=== PATIENT | female | born 1935 | race Caucasian/White ===

== ENCOUNTER → 2017-07-04 | Day surgery (SDC) | payer MEDICARE ==
[~2017-07-04] MED LIST: ASPI81TA50 PO; BRIM5DRO3 EACHEYE; DORZ10DR3 EACHEYE; GLIP10TA13 PO; GLUC100018 PO; HYDROmorphone 2 MG/ML VIAL IV PRN; IV RINGERS,LACTATED 1000ML 1,000 ML IV SCH; LIDOCAINE 1% PF 2 ML VIAL. ID PRN; LIDOCAINE 2% PF Vial for OR 5 ML VIAL. ONE; MELO7.5T29 PO; METF-620 PO; MORPHINE SULFATE 2 MG/ML DISP.SYRIN. IV PRN; MULT1TAB52 PO; ONDANSETRON PF 4 MG/2 ML VIAL. IV PRN; PARO20TA3 PO; PROCHLORPERAZINE 10 MG/2 ML VIAL. IV PRN; PROPOFOL 40 ML IV ONE; SIMV40TA3 PO; SITA1TAB11 PO; VALS1TAB14 PO; fentaNYL PF VIAL 100 MCG/2 ML VIAL IV PRN
[2017-07-04 09:40] VITALS: BP 170/74
--- NOTE | 2017-07-04 17:55 | CONS ---
DATE OF CONSULTATION: 07/04/2017 REASON FOR CONSULTATION: History of colon cancer. HISTORY OF PRESENT ILLNESS: An 82-year-old female with past medical history significant for colon cancer, seen for constipation and bleeding, describes blood drops in the toilet. With the continued issues, she requests additional evaluation. PAST MEDICAL HISTORY: History of colon cancer, history of diabetes, hypertension, hyperlipidemia. ALLERGIES: None. MEDICATIONS: Include aspirin, Alphagan eye drops, glipizide, glucosamine, Meloxicam, paroxetine, simvastatin, metformin/Janumet, valsartan/hydrochlorothiazide. FAMILY AND SOCIAL HISTORY: She is retired. Does not drink or smoke. REVIEW OF SYSTEMS: Per records. PHYSICAL EXAMINATION: GENERAL: Reveals a well-nourished, well-developed female, who is alert and cooperative, in no acute distress. VITAL SIGNS: Temperature 97.6, pulse 91, respiratory rate 18. HEENT: Normocephalic and atraumatic. Pupils and extraocular movements are not tested. Sclerae anicteric. NECK: Supple. LUNGS: Clear. CARDIOVASCULAR: Reveals an S1, S2 without S3, S4 or appreciable murmur. ABDOMEN: Soft abdomen, normal bowel sounds, without appreciable splenomegaly. EXTREMITIES: Reveals no cyanosis, clubbing or edema. IMPRESSION: Rectal bleed, history of colon cancer, constipation. Colonoscopy is recommended to further assess. Risks and benefits have been discussed. The patient is willing to proceed at this time. MOISE GALINDO MD DR: ANDREA/melissa JOB#: [id number] / [id number]
== END | disposition home or self-care (01) ==
LOC: ENDOS 07:27
PROVIDERS: ATTEND Internal Medicine Gastroenterology
DX: K64.0 First degree hemorrhoids (principal); E07.9 Disorder of thyroid, unspecified; E11.39 Type 2 diabetes mellitus with other diabetic ophthalmic complication; H40.9 Unspecified glaucoma; E78.00 Pure hypercholesterolemia, unspecified; I10 Essential (primary) hypertension; F41.9 Anxiety disorder, unspecified; Z87.39 Personal history of other diseases of the musculoskeletal system and connective tissue
CPT/HCPCS: 45378; 82962; J2704; J2001

== ENCOUNTER → 2018-01-23 | Outpatient (CLI) | payer MEDICARE | END | disposition home or self-care (01) | LOC: ECHO 13:53 | DX: I34.0 Nonrheumatic mitral (valve) insufficiency (principal); I10 Essential (primary) hypertension; E11.39 Type 2 diabetes mellitus with other diabetic ophthalmic complication; E78.00 Pure hypercholesterolemia, unspecified | CPT/HCPCS: 93306 ==

== ENCOUNTER → 2020-07-06 | Outpatient (CLI) | payer MEDICARE ==
[2018-02-01 11:15] VITALS: BP 113/53
[~2020-07-06] MED LIST changes: +ASPI-630 PO; +BARIUM SULFATE 40% (APPLE) 148 GM PWD. PO ONE; -DORZ10DR3 EACHEYE; +DORZ10DR6 EACHEYE; -HYDROmorphone 2 MG/ML VIAL IV PRN; -IV RINGERS,LACTATED 1000ML 1,000 ML IV SCH; +LATA2.5D3 EACHEYE; -LIDOCAINE 1% PF 2 ML VIAL. ID PRN; -LIDOCAINE 2% PF Vial for OR 5 ML VIAL. ONE; +MELO15TA23 PO; -METF-620 PO; +METF10007 PO; -MORPHINE SULFATE 2 MG/ML DISP.SYRIN. IV PRN; +MULT-245 PO; +MULT-445 PO; -MULT1TAB52 PO; -ONDANSETRON PF 4 MG/2 ML VIAL. IV PRN; +PARO10TA3 PO; -PROCHLORPERAZINE 10 MG/2 ML VIAL. IV PRN; -PROPOFOL 40 ML IV ONE; +SIMV40TA18 PO; -SIMV40TA3 PO; -fentaNYL PF VIAL 100 MCG/2 ML VIAL IV PRN
--- NOTE | 2020-07-06 16:34 | RAD ---
PROCEDURE: VIDEO SWALLOW STUDY STUDY DATE: 07/06/2020 CLINICAL INDICATION / HISTORY: Reason: DYSPHAGIA / Spl. Instructions: BARIUM ORDERED / History: . TECHNIQUE: Real-time fluoroscopic imaging examination was performed in conjunction with speech therapy. The patient was administered barium labeled thin liquids, pudding, and solid consistency compounds. FLUOROSCOPY TIME: 3.0 minutes. Number of Images: 9 COMPARISON: None FINDINGS: The patient exhibited normal oral control. There was some delay in swallow initiation, likely related to intermittent inattention. Oral residue was observed post swallow in the valleculae. No definite aspiration was observed. The patient tolerated solid barium label compounds. Transient penetration was observed with mixed consistency solids as well as at the first trial of thin liquids by teaspoon. IMPRESSION: Mild dysphasia of the pharyngeal phase with transient penetration observed with thin liquids and mixed solid and thin liquid consistency foods.. No evidence of aspiration. Please refer to speech pathology notes for complete details and recommendations. Electronically signed by: Donnie Cook MD (07/06/2020 4:31 PM) [id number]
== END ==
LOC: RAD 14:09
PROVIDERS: ATTEND Internal Medicine Gastroenterology
DX: R13.10 Dysphagia, unspecified (principal)
CPT/HCPCS: 74230; 92526-GN; 92611-GN